=== PATIENT | male | born 1960 | race Caucasian/White ===

== ENCOUNTER 2018-01-17 13:36 | Inpatient (IN) | payer MEDICAID, MEDICARE, OTHER ==
[~2018-01-17] VITALS: Ht 175.3 cm; Wt 81.0 kg
[2018-01-17] MEDS ORDERED: KETOROLAC TROMETH 30 MG/ML 1ML VIAL IV ONE (14:00)
[2018-01-17] MEDS ORDERED: SODIUM CHLORIDE 0.9% 1,000 ML IV ONE (14:00)
[2018-01-17 14:31] LABS: Basophils # (auto) 0 uL; Eosinophils # (auto) 0 uL; Eosinophils % (auto) 0.3 % (0.0-7.0); Lymphocytes # (auto) 1.6 uL; Lymphocytes % (auto) 11.6 % (10.0-50.0); Neutrophils % (auto) 75.3 % (37.0-80.0)
[2018-01-17 14:33] LABS: Basophils % (auto) 0.3 % (0.0-2.0); Hematocrit 33.8 % (41.0-53.0); Hemoglobin 11.8 g/dL (13.5-17.5); Mean Corpuscular Hgb Conc. 34.9 g/dL (32.0-36.0); Mean Corpuscular Volume 100.2 fL (80.0-100.0); Monocytes # (auto) 1.7 uL; Monocytes % (auto) 12.5 % (0.0-12.0); Neutrophils # (auto) 10.2 uL; Platelet Count (auto) 224 10^3/uL (140-450); Red Blood Cells 3.37 10^6/uL (4.5-5.90); White Blood Cell 13.5 10^3/uL (4.4-10.8)
[2018-01-17 14:37] LABS: Urine Bacteria MANY /hpf (None Seen); Urine Blood 3+ /uL (Negative); Urine WBC 166 /hpf (0 - 3); Urine WBC Clumps PRESENT /hpf (None Seen)
[2018-01-17 14:44] LABS: Urine Specific Gravity 1.012 (1.001-1.035)
[2018-01-17 14:56] LABS: Albumin 2.4 g/dL (3.4-5.0); Anion Gap 10 (5-15); Blood Urea Nitrogen 21 mg/dL (7-18); Carbon Dioxide 29 mmol/L (21-32); Chloride 84 mmol/L (98-107); Glucose 99 mg/dL (74-106); Magnesium 1.4 mg/dL (1.6-2.6); Sodium 123 mmol/L (136-145)
[2018-01-17 15:02] LABS: Alanine Aminotransferase 13 U/L (16-61); Alkaline Phosphatase 76 U/L (45-117); Aspartate Aminotransferase 17 U/L (15-37); BUN/Creatinine Ratio 14.7; Bilirubin, Total 0.4 mg/dL (0.2-1.0); GFR African American 66 mL/min; GFR Non-African American 54 mL/min; Total Protein 7.2 g/dL (6.4-8.2)
[2018-01-17 15:28] LABS: Potassium 2.7 mmol/L (3.5-5.1)
[2018-01-17] MEDS ORDERED: POTASSIUM EFFERVESENT TAB 25 MEQ PO ONE (15:30)
[2018-01-17] MEDS ORDERED: PIPERACILLIN-TAZOB 3.375GM 100 ML IV ONE (16:30)
[2018-01-17] MEDS ORDERED: CLINDAMYCIN 900MG IV 50 ML IV ONE (16:30)
[2018-01-17] MEDS ORDERED: HYDROmorphone HCL 2 MG/ML VL IV ONE (16:30)
[2018-01-17] MEDS ORDERED: ONDANSETRON HCL 4 MG/2 ML VIAL IV ONE (16:30)
[2018-01-17 16:53] LABS: INR 1.13 (0.9-1.15)
[2018-01-17] MEDS ORDERED: BENZOCAINE (DENTAL) 20 % SPRAY 60ML MT ONE (17:15)
[2018-01-17] MEDS ORDERED: VANCOMYCIN PER PHARMACY 0 MG IV SCH (18:15)
[2018-01-17] MEDS ORDERED: MAGNESIUM SULFATE 1GM/100ML 100 ML IV ONE (18:15)
[2018-01-17] MEDS ORDERED: POTASSIUM CHL 20MEQ/100ML 100 ML IV ONE (18:15)
[2018-01-17] MEDS ORDERED: NITROGLYCERIN 0.4 MG SL TAB SL PRN (18:30)
[2018-01-17] MEDS ORDERED: ONDANSETRON HCL 4 MG/2 ML VIAL IV PRN (18:30)
[2018-01-17] MEDS ORDERED: MORPHINE SULFATE 4 MG/ML SYR/VIAL IV PRN (18:30)
[2018-01-17] MEDS ORDERED: LABETALOL HCL 5 MG/ML ML 20ML VIAL IV PRN (18:45)
[2018-01-17] MEDS ORDERED: PANTOPRAZOLE 40 MG/10 ML VIAL IV ONE (18:45)
[2018-01-17] MEDS: D5W/SOD CHL 0.45%/KCL 20MEQ 1,000 ML IV SCH (18:56)
[2018-01-17] MEDS ORDERED: NICOTINE 21MG/24 HR TOPICAL PATCH TD ONE (19:00)
[2018-01-17] MEDS ORDERED: METO25TA62 PO (20:07)
[2018-01-17] MEDS ORDERED: HYDR50TA15 PO (20:07)
[2018-01-17] MEDS ORDERED: OME20T PO (20:07)
[2018-01-17] MEDS ORDERED: HYDR25TA4 PO (20:07)
[2018-01-17] MEDS ORDERED: APIX5TAB PO (20:07)
[2018-01-17] MEDS ORDERED: CLON0.2D6 PO (20:07)
[2018-01-17] MEDS: HYDROmorphone HCL 2 MG/ML VL IV PRN (21:00)
[2018-01-17 22:00] VITALS: BP 124/79
[2018-01-17] MEDS: VANCOMYCIN 1GM/250ML 250 ML IV SCH (22:08)
[2018-01-18] MEDS: HYDROmorphone HCL 2 MG/ML VL IV PRN ×9 (00:02→21:55)
[2018-01-18] MEDS: D5W/SOD CHL 0.45%/KCL 20MEQ 1,000 ML IV SCH ×3 (03:46→19:28)
[2018-01-18 05:58] LABS: Basophils # (auto) 0 uL; Basophils % (auto) 0.2 % (0.0-2.0); Eosinophils # (auto) 0.1 uL; Eosinophils % (auto) 0.8 % (0.0-7.0); Hematocrit 32.7 % (41.0-53.0); Hemoglobin 11.5 g/dL (13.5-17.5); Lymphocytes # (auto) 1.1 uL; Lymphocytes % (auto) 13.8 % (10.0-50.0); Mean Corpuscular Hemoglobin 35.4 pg (28.0-32.0); Mean Corpuscular Hgb Conc. 35.2 g/dL (32.0-36.0); Mean Corpuscular Volume 100.6 fL (80.0-100.0); Monocytes # (auto) 1.1 uL; Monocytes % (auto) 13.3 % (0.0-12.0); Neutrophils # (auto) 5.9 uL; Neutrophils % (auto) 71.9 % (37.0-80.0); Platelet Count (auto) 185 10^3/uL (140-450); Red Blood Cells 3.25 10^6/uL (4.5-5.90); White Blood Cell 8.2 10^3/uL (4.4-10.8)
[2018-01-18 06:24] LABS: Albumin 2.1 g/dL (3.4-5.0); BUN/Creatinine Ratio 17.6; Bilirubin, Total 0.4 mg/dL (0.2-1.0); Calcium 8.2 mg/dL (8.5-10.1); Magnesium 1.7 mg/dL (1.6-2.6); Total Protein 6.6 g/dL (6.4-8.2)
[2018-01-18 08:11] VITALS: BP 136/82
[2018-01-18] MEDS: PANTOPRAZOLE 40 MG/10 ML VIAL IV SCH (09:31)
[2018-01-18] MEDS: NICOTINE 21MG/24 HR TOPICAL PATCH TD SCH (10:00)
[2018-01-18] MEDS: VANCOMYCIN 1GM/250ML 250 ML IV SCH ×2 (10:30→21:54)
[2018-01-18] MEDS ORDERED: POTASSIUM CHL 20MEQ/100ML 100 ML IV ONE (12:30)
[2018-01-18 13:07] VITALS: BP 145/94
[2018-01-18 17:11] VITALS: BP 143/88
[2018-01-18] MEDS: PIPERACILLIN-TAZOB 3.375GM 100 ML IV SCH (19:00)
[2018-01-18 22:00] VITALS: BP 160/99
[2018-01-19] MEDS: HYDROmorphone HCL 2 MG/ML VL IV PRN ×5 (00:43→18:00)
[2018-01-19] MEDS: PIPERACILLIN-TAZOB 3.375GM 100 ML IV SCH ×3 (03:30→13:00)
[2018-01-19] MEDS ORDERED: ATRO1SOL15 OP (04:05)
[2018-01-19] MEDS ORDERED: PRED1SUS3 OP (04:05)
[2018-01-19] MEDS ORDERED: CIPR0.3S40 OP (04:05)
[2018-01-19 04:56] VITALS: BP 128/75
[2018-01-19 06:11] LABS: Basophils # (auto) 0 uL; Eosinophils # (auto) 0 uL; Eosinophils % (auto) 0.1 % (0.0-7.0); Lymphocytes # (auto) 1.2 uL; Mean Corpuscular Volume 101.2 fL (80.0-100.0); Red Cell Distribution Width 13.3 % (11.8-14.3)
[2018-01-19 06:14] LABS: Basophils % (auto) 0.3 % (0.0-2.0); Hematocrit 34.7 % (41.0-53.0); Mean Corpuscular Hemoglobin 34.9 pg (28.0-32.0); Mean Corpuscular Hgb Conc. 34.5 g/dL (32.0-36.0); Monocytes # (auto) 1.5 uL; Monocytes % (auto) 15.8 % (0.0-12.0); Neutrophils # (auto) 6.7 uL; Neutrophils % (auto) 70.8 % (37.0-80.0); Nucleated Red Blood Cells % 0.2 %; Platelet Count (auto) 194 10^3/uL (140-450); Red Blood Cells 3.43 10^6/uL (4.5-5.90); White Blood Cell 9.5 10^3/uL (4.4-10.8)
[2018-01-19] MEDS: D5W/SOD CHL 0.45%/KCL 20MEQ 1,000 ML IV SCH ×2 (06:25→11:55)
[2018-01-19 06:26] LABS: BUN/Creatinine Ratio 12.2; Calcium 8.2 mg/dL (8.5-10.1); Magnesium 1.6 mg/dL (1.6-2.6); Potassium 3.1 mmol/L (3.5-5.1)
[2018-01-19 06:28] LABS: Bilirubin, Total 0.6 mg/dL (0.2-1.0); Total Protein 6.4 g/dL (6.4-8.2)
[2018-01-19 08:11] VITALS: BP 126/72
[2018-01-19] MEDS ORDERED: POTASSIUM CHL 20MEQ/100ML 100 ML IV ONE (09:30)
[2018-01-19] MEDS: VANCOMYCIN 1GM/250ML 250 ML IV SCH (10:15)
[2018-01-19] MEDS: PANTOPRAZOLE 40 MG/10 ML VIAL IV SCH (10:16)
[2018-01-19] MEDS: NICOTINE 21MG/24 HR TOPICAL PATCH TD SCH (10:16)
[2018-01-19 11:44] VITALS: BP 141/92
[2018-01-19 16:11] VITALS: BP 143/81
== END 2018-01-19 18:00 | disposition short-term general hospital (02) | DRG 394 ==
LOC: ER 13:36 → EDBD 13:36 → TELE 13:37 → TELE-WESTW 20:34
PROVIDERS: ADMIT Internal Medicine; ATTEND Internal Medicine Geriatric Medicine
DX: K40.30 Unilateral inguinal hernia, with obstruction, without gangrene, not specified as recurrent (principal); L02.211 Cutaneous abscess of abdominal wall; N17.9 Acute kidney failure, unspecified; E44.0 Moderate protein-calorie malnutrition; E87.1 Hypo-osmolality and hyponatremia; N32.1 Vesicointestinal fistula; K57.20 Diverticulitis of large intestine with perforation and abscess without bleeding; I69.354 Hemiplegia and hemiparesis following cerebral infarction affecting left non-dominant side; M41.86 Other forms of scoliosis, lumbar region; D64.9 Anemia, unspecified; E83.42 Hypomagnesemia; E83.51 Hypocalcemia; E86.0 Dehydration; I12.9 Hypertensive chronic kidney disease with stage 1 through stage 4 chronic kidney disease, or unspecified chronic kidney disease; N18.3 Chronic kidney disease, stage 3 (moderate); E87.6 Hypokalemia; M51.36 Other intervertebral disc degeneration, lumbar region; Z68.26 Body mass index [BMI] 26.0-26.9, adult
CPT/HCPCS: 36415; 71045; 74176; 76700; 80053; 80202; 81001; 82150; 83605; 83690; 83735; 84484; 85025; 85610; 86850; 86900; 86901; 87040; 87086; 93005; 96361; 96365; 96367; 96375; C9113; G0378; J1885; J2405; J2543; J3490

== ENCOUNTER 2019-12-17 15:41 | Inpatient (IN) | payer OTHER ==
[~2019-12-17] VITALS: Ht 175.3 cm; Wt 79.8 kg
[~2019-12-17 15:41] MED LIST: APIX5TAB PO; ATRO1SOL15 OP; CLON0.2D6 PO; HYDR-4072 PO; HYDR25TA4 PO; HYDR50TA15 PO; METO25TA93 PO; OME20T PO; PRED1SUS4 OP
[2019-12-17] MEDS ORDERED: SODIUM CHLORIDE 0.9% 1,000 ML IV ONE (15:55)
[2019-12-17] MEDS ORDERED: ONDANSETRON HCL 4 MG/2 ML VIAL IV ONE (16:00)
[2019-12-17] MEDS ORDERED: HYDROmorphone HCL 2 MG/ML VL IV ONE ×4 (16:00→22:00)
[2019-12-17 17:17] LABS: Basophils # (auto) 0 10 ^3/uL (0-0.2); Basophils % (auto) 0.4 % (0.0-2.0); Eosinophils # (auto) 0.1 10 ^3/uL (0-0.8); Eosinophils % (auto) 0.8 % (0.0-7.0); Hematocrit 38.8 % (41.0-53.0); Hemoglobin 12.7 g/dL (13.5-17.5); Lymphocytes % (auto) 14.5 % (10.0-50.0); Mean Corpuscular Hemoglobin 30.3 pg (28.0-32.0); Mean Corpuscular Hgb Conc. 32.9 g/dL (32.0-36.0); Mean Corpuscular Volume 92.1 fL (80.0-100.0); Monocytes # (auto) 0.8 10 ^3/uL (0-1.3); Monocytes % (auto) 11.3 % (0.0-12.0); Neutrophils # (auto) 5.2 10 ^3/uL (1.6-8.6); Nucleated Red Blood Cells % 0.1 %; Platelet Count (auto) 192 10^3/uL (140-450); Red Blood Cells 4.21 10^6/uL (4.5-5.90); Red Cell Distribution Width 14.9 % (11.8-14.3); White Blood Cell 7.2 10^3/uL (4.4-10.8)
[2019-12-17 17:23] LABS: Alanine Aminotransferase 15 U/L (16-61); Albumin 3.2 g/dL (3.4-5.0); Anion Gap 7 (5-15); Aspartate Aminotransferase 17 U/L (15-37); BUN/Creatinine Ratio 8.8; Blood Urea Nitrogen 7 mg/dL (7-18); Calcium 8.4 mg/dL (8.5-10.1); Carbon Dioxide 23 mmol/L (21-32); Chloride 100 mmol/L (98-107); GFR African American 127 mL/min; GFR Non-African American 105 mL/min; Glucose 93 mg/dL (74-106); Potassium 3.8 mmol/L (3.5-5.1); Sodium 130 mmol/L (136-145)
[2019-12-17 17:28] LABS: Alkaline Phosphatase 150 U/L (45-117); Bilirubin, Total 0.3 mg/dL (0.2-1.0); Total Protein 6.9 g/dL (6.4-8.2)
[2019-12-17 17:42] LABS: INR 1.13 (0.9-1.15); Partial Thromboplastin Time 35.2 sec (23.0-31.2)
[2019-12-17] MEDS ORDERED: cloNIDine HCL 0.1 MG TAB PO ONE (22:00)
[2019-12-18] MEDS ORDERED: LORazepam 0.5 MG TAB PO PRN (01:45)
[2019-12-18] MEDS ORDERED: MORPHINE SULF INJ 2 MG/ML SYRINGE 1ML IV PRN (01:45)
[2019-12-18] MEDS ORDERED: DOCUSATE SOD 100 MG CAP PO PRN (01:45)
[2019-12-18] MEDS ORDERED: HYDROcodone-ACET 5/325MG TAB PO PRN (01:45)
[2019-12-18] MEDS ORDERED: ONDANSETRON HCL 4 MG/2 ML VIAL IV PRN (01:45)
[2019-12-18] MEDS ORDERED: ACETAMINOPHEN 325 MG TAB PO PRN (01:45)
[2019-12-18] MEDS: HYDROmorphone HCL 2 MG/ML VL IV PRN ×3 (02:54→14:18)
[2019-12-18 04:00] VITALS: BP 164/113
[2019-12-18 04:45] VITALS: BP 164/113
[2019-12-18 09:00] VITALS: BP 166/66
[2019-12-18] MEDS ORDERED: PANTOPRAZOLE 40 MG TAB PO SCH (10:00)
[2019-12-18] MEDS ORDERED: METOPROLOL SUCCINATE XL 50 MG TAB PO SCH (10:00)
[2019-12-18] MEDS ORDERED: OMEPRAZOLE 20MG/10ML ORAL SUSP PO SCH (10:00)
[2019-12-18] MEDS ORDERED: HCTZ 25 MG TAB PO SCH (10:00)
[2019-12-18 10:17] LABS: Basophils # (auto) 0 10 ^3/uL (0-0.2); Basophils % (auto) 0.3 % (0.0-2.0); Eosinophils # (auto) 0 10 ^3/uL (0-0.8); Eosinophils % (auto) 0.2 % (0.0-7.0); Hematocrit 40.3 % (41.0-53.0); Hemoglobin 13.7 g/dL (13.5-17.5); Lymphocytes # (auto) 0.9 10 ^3/uL (0.4-5.4); Mean Corpuscular Hemoglobin 31.4 pg (28.0-32.0); Mean Corpuscular Hgb Conc. 34.1 g/dL (32.0-36.0); Mean Corpuscular Volume 91.9 fL (80.0-100.0); Monocytes # (auto) 0.9 10 ^3/uL (0-1.3); Neutrophils # (auto) 4.1 10 ^3/uL (1.6-8.6); Neutrophils % (auto) 69.5 % (37.0-80.0); Platelet Count (auto) 180 10^3/uL (140-450); Red Blood Cells 4.38 10^6/uL (4.5-5.90); Red Cell Distribution Width 15.1 % (11.8-14.3)
[2019-12-18 10:41] LABS: Potassium 3.7 mmol/L (3.5-5.1)
[2019-12-18 10:49] LABS: BUN/Creatinine Ratio 8.1
[2019-12-18] MEDS ORDERED: HYDROmorphone HCL 2 MG/ML VL IV ONE (11:15)
[2019-12-18] MEDS ORDERED: ENOXAPARIN SOD 40 MG/0.4 ML SYRINGE SC SCH (11:15)
[2019-12-18] MEDS ORDERED: hydrALAZINE HCL 20 MG/ML VL IV PRN (11:30)
[2019-12-18] MEDS ORDERED: ENALAPRILAT 1.25 MG/ML-1ML VIAL IV PRN (11:45)
[2019-12-18 13:00] VITALS: BP 161/111
== END 2019-12-18 16:00 | disposition short-term general hospital (02) | DRG 536 ==
LOC: EDBD 15:41 → ER 15:41 → WEST WING 15:42
PROVIDERS: ADMIT Hospitalist; ATTEND Hospitalist
DX: S72.144A Nondisplaced intertrochanteric fracture of right femur, initial encounter for closed fracture (principal); E87.1 Hypo-osmolality and hyponatremia; F17.210 Nicotine dependence, cigarettes, uncomplicated; W18.39XA Other fall on same level, initial encounter; I10 Essential (primary) hypertension; K21.9 Gastro-esophageal reflux disease without esophagitis; Z79.01 Long term (current) use of anticoagulants; Z80.9 Family history of malignant neoplasm, unspecified; Z86.73 Personal history of transient ischemic attack (TIA), and cerebral infarction without residual deficits; Z93.3 Colostomy status; Y93.89 Activity, other specified; Y92.59 Other trade areas as the place of occurrence of the external cause; Y99.8 Other external cause status; Y92.094 Garage of other non-institutional residence as the place of occurrence of the external cause
CPT/HCPCS: 36415; 70450; 71045; 73030; 74176; 80048; 80053; 80061; 80320; 84484; 85025; 85610; 85730; 87081; G0378; J2405

== ENCOUNTER 2020-07-16 10:56 | Inpatient (IN) | payer OTHER ==
[~2020-07-16] VITALS: Ht 175.3 cm; Wt 81.4 kg
[~2020-07-16 10:56] MED LIST changes: -APIX5TAB PO
[2020-07-16] MEDS ORDERED: MORPHINE SULF INJ 2 MG/ML SYRINGE 1ML IV ONE ×3 (12:15→15:30)
[2020-07-16] MEDS ORDERED: ONDANSETRON HCL 4 MG/2 ML VIAL IV ONE ×3 (12:15→15:30)
[2020-07-16] MEDS ORDERED: SODIUM CHLORIDE 0.9% 1,000 ML IVB ONE (12:15)
[2020-07-16 12:30] LABS: Basophils # (auto) 0 10 ^3/uL (0-0.2); Basophils % (auto) 0.2 % (0.0-2.0); Eosinophils # (auto) 0.5 10 ^3/uL (0-0.8); Eosinophils % (auto) 5.2 % (0.0-7.0); Hematocrit 44.8 % (41.0-53.0); Hemoglobin 15.5 g/dL (13.5-17.5); Lymphocytes % (auto) 21.8 % (10.0-50.0); Mean Corpuscular Hemoglobin 32.1 pg (28.0-32.0); Mean Corpuscular Hgb Conc. 34.5 g/dL (32.0-36.0); Mean Corpuscular Volume 93.2 fL (80.0-100.0); Monocytes # (auto) 0.8 10 ^3/uL (0-1.3); Monocytes % (auto) 8.7 % (0.0-12.0); Neutrophils # (auto) 5.8 10 ^3/uL (1.6-8.6); Neutrophils % (auto) 64.1 % (37.0-80.0); Nucleated Red Blood Cells % 0.3 %; Platelet Count (auto) 242 10^3/uL (140-450); Red Blood Cells 4.81 10^6/uL (4.5-5.90); Red Cell Distribution Width 14.3 % (11.8-14.3); White Blood Cell 9.1 10^3/uL (4.4-10.8)
[2020-07-16 12:46] LABS: Albumin 3.7 g/dL (3.4-5.0); Calcium 8.6 mg/dL (8.5-10.1); Magnesium 2.1 mg/dL (1.6-2.6); Potassium 4.6 mmol/L (3.5-5.1)
[2020-07-16 12:50] LABS: Bilirubin, Total 0.5 mg/dL (0.2-1.0); Total Protein 7.9 g/dL (6.4-8.2)
[2020-07-16] MEDS ORDERED: NITROGLYCERIN 0.4 MG SL TAB SL PRN (17:15)
[2020-07-16] MEDS ORDERED: HYDROcodone-ACET 5/325MG TAB PO PRN (17:15)
[2020-07-16] MEDS ORDERED: ONDANSETRON HCL 4 MG/2 ML VIAL IV PRN (17:15)
[2020-07-16] MEDS ORDERED: ACETAMINOPHEN 500 MG TAB PO PRN (17:15)
[2020-07-16] MEDS ORDERED: MORPHINE SULF INJ 2 MG/ML SYRINGE 1ML IV PRN (17:15)
[2020-07-16 17:56] VITALS: BP 118/74
[2020-07-16] MEDS: ALBUTEROL SULF 2.5 MG/0.5ML(0.5%) NEB SOLN NEB SCH (18:17)
[2020-07-16] MEDS: IPRATROPIUM BROM 0.5 MG/2.5ML INH SOL NEB SCH (18:17)
[2020-07-16] MEDS: HYDROmorphone HCL 2 MG/ML VL IV PRN (19:40)
[2020-07-16] MEDS ORDERED: LORazepam 2MG/ML-1ML VIAL IV PRN (21:45)
[2020-07-16 22:00] VITALS: BP 113/75
[2020-07-16] MEDS: APIXABAN 5 MG TAB PO SCH (22:22)
[2020-07-16] MEDS: ATORVASTATIN 20 MG TAB PO SCH (22:23)
[2020-07-16] MEDS: METOPROLOL SUCCINATE XL 50 MG TAB PO SCH (22:24)
[2020-07-16 22:30] LABS: INR 1.1 (0.9-1.15); Partial Thromboplastin Time 33.3 sec (23.0-31.2)
[2020-07-16 23:20] VITALS: BP 113/75
[2020-07-17] MEDS ORDERED: METO-169 PO (00:01)
[2020-07-17] MEDS ORDERED: HYDR-4902 PO (00:01)
[2020-07-17] MEDS ORDERED: APIX5TAB PO (00:01)
[2020-07-17] MEDS ORDERED: GABA300C10 PO (00:01)
[2020-07-17] MEDS ORDERED: CIP500T PO (00:01)
[2020-07-17] MEDS ORDERED: AMLO-489 PO (00:01)
[2020-07-17] MEDS ORDERED: DULO20CA PO (00:01)
[2020-07-17 05:00] VITALS: BP 130/73
[2020-07-17] MEDS: ALBUTEROL SULF 2.5 MG/0.5ML(0.5%) NEB SOLN NEB SCH ×3 (05:31→20:12)
[2020-07-17] MEDS: IPRATROPIUM BROM 0.5 MG/2.5ML INH SOL NEB SCH ×3 (05:32→20:12)
[2020-07-17 09:00] VITALS: BP 140/85
[2020-07-17] MEDS: APIXABAN 5 MG TAB PO SCH ×2 (09:10→22:20)
[2020-07-17] MEDS: HCTZ 25 MG TAB PO SCH (09:11)
[2020-07-17] MEDS: PANTOPRAZOLE 40 MG TAB PO SCH (09:11)
[2020-07-17] MEDS: METOPROLOL SUCCINATE XL 50 MG TAB PO SCH ×2 (09:12→22:21)
[2020-07-17] MEDS: NICOTINE 21MG/24 HR TOPICAL PATCH TD SCH (09:12)
[2020-07-17] MEDS: HYDROcodone-ACET 10/325MG TAB PO PRN ×3 (09:13→22:22)
[2020-07-17 09:30] LABS: Folate (Folic Acid) 3.53 ng/mL (5.38-24)
[2020-07-17] MEDS ORDERED: OMEPRAZOLE 20MG/10ML ORAL SUSP PO SCH (10:00)
[2020-07-17 10:08] LABS: Cholesterol 120 mg/dL (< 200); HDL Cholesterol 54 mg/dL (40-59); LDL Cholesterol 53 mg/dL (< 100); Triglycerides 124 mg/dL (< 150)
[2020-07-17] MEDS: HYDROmorphone HCL 2 MG/ML VL IV PRN (12:21)
[2020-07-17 13:00] VITALS: BP 124/74
[2020-07-17] MEDS ORDERED: predniSONE 20 MG TAB PO ONE (14:00)
[2020-07-17 17:00] VITALS: BP 150/91
[2020-07-17] MEDS ORDERED: METH4PAK PO (20:11)
[2020-07-17 22:00] VITALS: BP 149/88
[2020-07-17] MEDS ORDERED: FOLIC ACID 1 MG in D5W 5% 50 ML INJ ONE (22:00)
[2020-07-17] MEDS ORDERED: CYANOCOBALAMIN (B-12) 1000 MCG/1 ML VIAL IM ONE (22:00)
[2020-07-17] MEDS: ATORVASTATIN 20 MG TAB PO SCH (22:21)
[2020-07-18 05:28] VITALS: BP 152/95
[2020-07-18] MEDS: HYDROcodone-ACET 10/325MG TAB PO PRN ×2 (05:40→11:27)
[2020-07-18] MEDS: ALBUTEROL SULF 2.5 MG/0.5ML(0.5%) NEB SOLN NEB SCH ×2 (05:50→11:27)
[2020-07-18] MEDS: IPRATROPIUM BROM 0.5 MG/2.5ML INH SOL NEB SCH ×2 (05:50→11:27)
[2020-07-18 08:34] VITALS: BP 150/99
[2020-07-18] MEDS ORDERED: CYANOCOBALAMIN 500 MCG TAB PO SCH (10:00)
[2020-07-18] MEDS ORDERED: FOLIC ACID 1 MG in D5W 5% 50 ML INJ SCH (10:00)
[2020-07-18] MEDS: METOPROLOL SUCCINATE XL 50 MG TAB PO SCH (10:01)
[2020-07-18] MEDS: HCTZ 25 MG TAB PO SCH (10:01)
[2020-07-18] MEDS: APIXABAN 5 MG TAB PO SCH (10:01)
[2020-07-18] MEDS: PANTOPRAZOLE 40 MG TAB PO SCH (10:01)
[2020-07-18] MEDS: NICOTINE 21MG/24 HR TOPICAL PATCH TD SCH (10:02)
[2020-07-18 11:18] VITALS: BP 150/99
[2020-07-18 12:30] VITALS: BP 150/98
== END 2020-07-18 13:30 | disposition home health service (06) | DRG 552 ==
LOC: ER 10:56 → EDBD 10:56 → TELE 17:06 → TELE-CENTR 20:24
PROVIDERS: ADMIT Nurse Practitioner Acute Care; ATTEND Internal Medicine
DX: M51.16 Intervertebral disc disorders with radiculopathy, lumbar region (principal); Z20.822 Contact with and (suspected) exposure to COVID-19; H54.8 Legal blindness, as defined in USA; I10 Essential (primary) hypertension; K57.90 Diverticulosis of intestine, part unspecified, without perforation or abscess without bleeding; J44.9 Chronic obstructive pulmonary disease, unspecified; M81.0 Age-related osteoporosis without current pathological fracture; G62.9 Polyneuropathy, unspecified; E53.8 Deficiency of other specified B group vitamins; I48.91 Unspecified atrial fibrillation; Z96.641 Presence of right artificial hip joint; F32.9 Major depressive disorder, single episode, unspecified; M48.061 Spinal stenosis, lumbar region without neurogenic claudication; K21.9 Gastro-esophageal reflux disease without esophagitis; E78.5 Hyperlipidemia, unspecified; F17.210 Nicotine dependence, cigarettes, uncomplicated; Z79.01 Long term (current) use of anticoagulants; Z86.73 Personal history of transient ischemic attack (TIA), and cerebral infarction without residual deficits; Z79.899 Other long term (current) drug therapy; Z80.0 Family history of malignant neoplasm of digestive organs; Z80.42 Family history of malignant neoplasm of prostate; Z82.49 Family history of ischemic heart disease and other diseases of the circulatory system; Z83.3 Family history of diabetes mellitus; Z85.828 Personal history of other malignant neoplasm of skin; Z93.3 Colostomy status; Z86.718 Personal history of other venous thrombosis and embolism
CPT/HCPCS: 36415; 71045; 72131; 72148; 80053; 80061; 82607; 82746; 83036; 83735; 84155; 84165; 84443; 85025; 85610; 85730; 87426; 93970; 94640; 96361; 96374; 96375; 97110; 97163; 97530; G0378; J2405; J7060